=== PATIENT | male | born 1960 | race Caucasian/White ===

== ENCOUNTER 2020-12-06 20:02 | Emergency (ER) | payer MEDICAID, OTHER ==
[~2020-12-06] VITALS: Ht 182.9 cm; Wt 79.4 kg
[~2020-12-06 20:02] MED LIST: ASPI-495; UNKNOWN BP MED
[2020-12-06] MEDS ORDERED: FLUORESCEIN SODIUM OPHTH 1 EA STRIP ONE (20:27)
[2020-12-06] MEDS ORDERED: TETRAcaine 5 ML BOTTLE EACHEYE ONE (20:30)
[2020-12-06] MEDS ORDERED: FLUORESCEIN SODIUM OPHTH 1 EA STRIP OP ONE (20:30)
--- NOTE | 2020-12-06 20:32 | NUR ---
bibself c/o eye redness s/p cuttin metal yesterday. denies vision problems. at bedside for lynne.
[2020-12-06 20:51] VITALS: BP 140/71
--- NOTE | 2020-12-06 20:51 | NUR ---
Patient discharged to home in stable condition. Written and verbal after care instructions given. Patient verbalizes understanding of instruction.
== END 2020-12-06 20:51 | disposition home or self-care (01) ==
LOC: ER 20:02
DX: T15.11XA Foreign body in conjunctival sac, right eye, initial encounter (principal); I10 Essential (primary) hypertension; E11.9 Type 2 diabetes mellitus without complications; Z79.82 Long term (current) use of aspirin; W45.8XXA Other foreign body or object entering through skin, initial encounter; Y93.89 Activity, other specified; Y92.89 Other specified places as the place of occurrence of the external cause; Y99.8 Other external cause status

== ENCOUNTER 2025-01-10 20:00 | Emergency (ER) | payer MEDICAID ==
[~2025-01-10] VITALS: Ht 182.9 cm; Wt 79.4 kg
[2025-01-10] MEDS ORDERED: TDAP [DIPH/PERTUSSIS/TET] 0.5 ML VIAL IM ONE (20:46)
[2025-01-10] MEDS: TDAP [DIPH/PERTUSSIS/TET] 0.5 ML VIAL IM ONE (20:53)
[2025-01-10] MEDS ORDERED: LIDOCAINE 1% INJ 50 ML MDV IJ ONE (20:56)
[2025-01-10] MEDS: LIDOCAINE 1% INJ 50 ML MDV IJ ONE (20:57)
[2025-01-10 21:52] VITALS: BP 135/94; TEMP 98.3; O2SAT 99
== END 2025-01-10 22:09 | disposition home or self-care (01) ==
LOC: ER 20:02
DX: S61.012A Laceration without foreign body of left thumb without damage to nail, initial encounter (principal); I10 Essential (primary) hypertension; E11.9 Type 2 diabetes mellitus without complications; F17.200 Nicotine dependence, unspecified, uncomplicated; X58.XXXA Exposure to other specified factors, initial encounter; Y93.89 Activity, other specified; Y92.89 Other specified places as the place of occurrence of the external cause; Y99.9 Unspecified external cause status
CPT/HCPCS: 12001; 73130; 90471; 90715; 99283; J3490

== ENCOUNTER 2025-01-18 18:52 | Emergency (ER) | payer MEDICAID ==
[~2025-01-18] VITALS: Ht 182.9 cm; Wt 89.8 kg
[2025-01-18 19:09] VITALS: BP 146/82; TEMP 98.3
[2025-01-18 20:21] VITALS: O2SAT 97
== END 2025-01-18 20:21 | disposition home or self-care (01) ==
LOC: ER 18:56
DX: S61.012D Laceration without foreign body of left thumb without damage to nail, subsequent encounter (principal); I10 Essential (primary) hypertension; E11.9 Type 2 diabetes mellitus without complications; F17.200 Nicotine dependence, unspecified, uncomplicated; Z48.02 Encounter for removal of sutures; X58.XXXD Exposure to other specified factors, subsequent encounter